=== PATIENT | female | born 1965 | race Caucasian/White ===

== ENCOUNTER 2016-06-11 08:56 | Day surgery (SDC) | payer OTHER ==
[2016-06-11] VITALS (9 sets, daily range): BP systolic 90–122; BP diastolic 40–64; PULSE 75–94; RESP 11–16; O2SAT 94–99
[~2016-06-11] VITALS: Ht 167.6 cm; Wt 76.7 kg
[~2016-06-11 08:56] MED LIST: ACET-171 PO; CeFAZolin Inj 2 GM in IV Premix 1 EACH IV ONE; DIPH25CA6 PO; EPIN0.3P2 IJ; GABA-502 PO; IBUP200C PO; LORA1TAB PO; ONDA8TAB7 PO; POLY35GE VG; PROC-4 PO; SULF1TAB35 PO
[2016-06-11] MEDS ORDERED: fentaNYL-PF 50 mCg/mL 2 mL Inj ONE (08:57)
[2016-06-11] MEDS ORDERED: Succinylcholine Chloride 20 mg/mL 5 mL Inj ONE (08:57)
[2016-06-11] MEDS ORDERED: MetoCLOpramide 5 mg/mL 2 mL Inj ONE (08:57)
[2016-06-11] MEDS ORDERED: Ketamine 10 mg/mL 20 mL Inj ONE (08:57)
[2016-06-11] MEDS ORDERED: Ondansetron 2 mg/mL 2 mL Inj ONE (08:57)
[2016-06-11] MEDS ORDERED: Dexamethasone 4 mg/mL Inj ONE (08:57)
[2016-06-11] MEDS ORDERED: Propofol 10,000 mCg/mL 20 mL Inj ONE (08:57)
[2016-06-11] MEDS: Lactated Ringer's 1,000 ML IV SCH ×2 (08:58→09:53)
[2016-06-11] MEDS ORDERED: Lactated Ringer's 500 ML IV PRN (10:22)
[2016-06-11] MEDS ORDERED: Lactated Ringer's 1,000 ML IV SCH (10:22)
[2016-06-11] MEDS ORDERED: Bupivacaine-MPF 0.5% W/EPI 30 mL Inj INFILTRATE ONE (10:22)
--- NOTE | 2016-06-11 10:22 | PCM.HPANE ---
Patient Data Surgeon Admitting Provider: Attending Provider:Martin Banks MD Primary Care Physician:Rubi Hernandez MD Other Provider:Ivania Churchillingham Anesthesia Reason for Visit Right Breast Cancer Ht/WT & BMI Height (Feet): 5 Height (Inches): 6.75 Weight (Kilograms): 77.11 Body Mass Index 26.00 Allergies Coded Allergies: amoxicillin (Verified Allergy, Severe, Rash-head to toe, 12/07/15) codeine (Verified Allergy, Severe, hallucinate, 12/12/15) citalopram (Verified Allergy, Unknown, unknown (classified as 'mild'), ) naproxen (Verified Allergy, Unknown, unknown (classified as 'mild'), ) sulfamethoxazole (Verified Allergy, Unknown, unknown (classified as 'mild' ), 12/07/15) trimethoprim (Verified Allergy, Unknown, unknown (classified as 'mild'), ) Uncoded Allergies: BEES (Allergy, Severe, LARGE LOCAL REACTIONS, 12/07/15) Past Anesthesia History Anesthesia History: Denies:: Anesthesia Reactions, Fam Anesthesia Reaction, Malignant Hyperthermia Diabetes History Hx Diabetes?: No MRSA MRSA: No Medications Reported Medications diphenhydrAMINE HCl (Benadryl)25 Mg Uejdyzt20 Mg PO HS PRN Ref 0 05/17/16 Glycerin/Min Oil/Polycarbophil (Replens Vaginal Applicator)35 Gm Gel.w.appl35 Gm VG DIRECTED PRN vaginal skin rash 04/26/16 Gabapentin 300 Mg [id number] Mg PO HS Ref 0 02/02/16 Acetaminophen 500 Mg Tablet1,000 Mg PO Q6H PRN For Pain 01/05/16 Lorazepam 1 Mg Tablet1 Mg PO HS PRN For Insomnia Ref 0 12/29/15 Prochlorperazine Maleate (Compazine)10 Mg Ndecqi65 Mg PO q8hrs prn 12/29/15 Ondansetron ODT (Zofran ODT)8 Mg Tablet8 Mg PO q8hrs prn PRN For Nausea 12/29/15 Ibuprofen 200 Mg Dnmfsep209-720 Mg PO prn PRN For Pain Ref 0 12/15/15 Epinephrine (Epipen 2-Kermit)0.3 Mg/0.3 Ml Auto.injct0.3 Mg IJ DIRECTED PRN prn 12/07/15 Discontinued Reported Medications Sulfamethoxazole/Trimeth 800-160 mg (Bactrim DS 800-160 mg)1 Each Tablet1 Tablet PO prn Ref 0 01/19/16 History History of ENT Problems?: No HEENT History: Denies:: Sinus Problem Hx of Heart Problems?: No Cardiovascular History: Positive for:: Heart Murmur (ECHO 10/2015 EF 60-65%) Denies:: Chest Pain Hypertension Pacemaker Rheumatic Fever Thrombophlebitis Valvular Heart Disease (echo 10/2015- ef 60-65%) Hx of Respiratory Problem?: No Respiratory History: Denies:: Asthma COPD Dyspnea Emphysema Hemoptysis Oxygen Administration Pneumonia Tuberculosis Use of C-PAP Machine Hx Neurologic Problems?: No Neurological History: Denies:: Alzheimer's Disease CVA Dementia Dizziness Headaches Multiple Sclerosis Parkinson's Disease Seizures Hx of GI Problems?: No Gastrointestinal History: Denies:: Cirrhosis Diverticulitis Gastroesphageal Reflux Gastrointestinal Bleeding Heartburn Hepatitis Liver Disease Rectal Bleeding Hx of Problems?: Yes Genitourinary History: Positive for:: Kidney Stones (past hx ureteral stone) Urinary Tract Infection (HX OF) Denies:: HX of Hemodialysis Female Hx: Positive for:: Problems with Breasts? (right breast current admission problem, hx ca/ port placement) Denies:: Currently Endometriosis Pelvic Inflammatory Skin History: Denies:: History Skin Disorders? (hx eczema) Pressure Ulcers Hx Musculoskeletal Problems?: No Musculoskeletal History: Denies:: Back Injury Fibromyalgia Joint Replacement Musculoskeletal Trauma Osteoarthritis Hx of Psycho/Social Problems?: No Psycho Social History: Denies:: Anxiety Bipolar Disorder Hx Depression Hx Surgeries?: Yes (tonsil, ovarian cyst, dental, Sent node bx, port) Hx Any Other Health Problems?: Yes Other History: Positive for:: Cancer (right breast, non melanoma skin ca) Hospitalization Denies:: Endocrine Disease Thyroid Disease History Blood Transfusions: Denies:: Blood Transfusions Hx Diabetes: No Hx Alcohol Use: YesAlcoholic Drinks Per Day: 1-2 dailyHx Substance Use: No Smoking Status: Former Smoker Have You Smoked inLast 12 mo: No Stop/Bang S-Snoring: Do You Snore Loudly: No T-Tired: feel tired, fatigued: No O-Obsered: Observed not breath: No P-Blood Pressure: treated: No B- Body Mass Index > 35 kg/m2: No A- Age over 50: Yes N- Neck Large Circumference: No G- Gender Male: No ADELINA Total Score: 1 Risk Assessment Category Category 1A: Patient has history of documented sleep apnea, and HAS NOT received any narcotic, sedative or anesthesia administration during this stay. Category 1B: Patient has history of documented sleep apnea, and HAS received any narcotic , sedative or anesthesia administration during this stay Category 2: Patient has SUSPECTED Obstructive Sleep Apnea, and HAS received any narcotic , sedative or anesthesia administration during this stay. Category 3: Patient has SUSPECTED Obstructive Sleep Apnea and HAS NOT received narcotic, sedative or anesthesia administration during this stay. Category 4: Outpatient in Procedural Areas with known sleep apnea or who screen positive for High Risk via the STOP/BANG questionnaire. Exam Exam General Appearance: Alert, Oriented X3, Cooperative, No Acute Distress HEENT/AIRWAY: MP 2, Neck Movement (FROM), Mouth Opening (3 FBMO) Lungs: Clear to Auscultation, Normal Air Movement Heart: Exam Unremarkable, Regular Rate/Rhythm, No Murmurs/Rubs/Gallops Plan Impression Patient chart reviewed, patient interviewed and anesthestic plan with risks, benefits, and alternatives discussed, and informed consent obtained. NPO Status: MN ASA Physical Status: ASA2 Mod Systemic Disease Anesthetic Plan: GA Bene/Risks/Altern/Consents: Yes HP Complete Prior to Induction: Yes Guilherme Mendez MD Jun 11, 2016 08:01
[2016-06-11] MEDS ORDERED: MetoCLOpramide 5 mg/mL 2 mL Inj IVPUSH PRN (10:25)
[2016-06-11] MEDS ORDERED: EPHEDrine Sulfate 50 mg/mL Inj IVPUSH PRN (10:25)
[2016-06-11] MEDS ORDERED: fentaNYL-PF 50 mCg/mL 2 mL Inj IVPUSH PRN (10:25)
[2016-06-11] MEDS ORDERED: Labetalol 5 mg/mL 4 mL Inj IV PRN (10:25)
[2016-06-11] MEDS ORDERED: Atropine 0.4 mg/mL Inj IVPUSH PRN (10:25)
[2016-06-11] MEDS ORDERED: Phenylephrine 10,000 mCg/mL Inj IVPUSH PRN (10:25)
[2016-06-11] MEDS ORDERED: HYDROmorphone 1 mg/mL Inj IVPUSH PRN (10:25)
[2016-06-11] MEDS ORDERED: hydrALAZINE 20 mg/mL Inj IVPUSH PRN (10:25)
[2016-06-11] MEDS ORDERED: Ondansetron 2 mg/mL 2 mL Inj IVPUSH PRN (10:25)
--- NOTE | 2016-06-11 11:34 | PCM.DISURG ---
Surgical Discharge Instruction Date of Service Jun 11, 2016 Dates of Hospitalization Date of Hospital Admission Providers Admitting Physician: Primary Care Physician: Rubi Hernandez MD Attending Physician: Martin Banks MD Discharge Diagnosis Discharge Diagnosis Right breast cancer Diet Discharge Diet: No restrictions Activity Discharge Activity-General: No restrictions Dressing and Incisional Care Dressing Care: Allow Steri Stripes to fall off, Remove outer dressing after 24 hrs Hygiene: May shower after (24 hours) Follow Up Plan Follow Up Plan With Dr. Banks in surgery clinic in 10-14 days Call your provider for: Fever (over 101.5), Discharge @ incision, pus discharge Martin Banks MD Jun 11, 2016 11:34
[2016-06-11] MEDS ORDERED: HYDROcodone-APAP 5-325 mg Tablet PO PRN (11:35)
--- NOTE | 2016-06-11 11:43 | PCM.SURGOP ---
Surgical Operative Report Date of Service: Jun 11, 2016 Pre Operative Diagnosis Right breast cancer Post Operative Diagnosis Same Procedure: Wire localized right partial mastectomy Surgeon and Consulting Psychologist: Surgeon: Martin Banks MD Assistants: Yannick Real PA-C Indication for Procedure 51-year-old woman who was diagnosed with T1, N1 right breast invasive ductal carcinoma in September 2015. She underwent sentinel lymph node biopsy at the outset of her treatment. She was then treated with neoadjuvant chemotherapy, which she completed on May 17. Repeat breast MRI demonstrated a complete radiographic response. The previously seen enhancing mass in the 12 o'clock position was no longer seen, and the previously seen enhancement extending toward the nipple in the 12 o'clock position was no longer seen. After discussion of risks and benefits, she agreed to proceed with wire localized right partial mastectomy. Findings: The spiral clip, which was the intended target, was not ever identified on specimen mammogram. The other clip, which was adjacent 1 cm away and corresponded to the MRI guided biopsy lesion, was localized in the first specimen. The wire fell out prematurely, immediately after skin incision. Procedure Details Preoperatively, the patient underwent wire localization in the Breast [facility]. She was then brought to the operating room where she underwent smooth induction of general endotracheal anesthesia. She was placed in the supine position with both arms out, and was prepped and draped in wide sterile fashion. A procedural pause was performed according to the SCOAP checklist, and all were found to be in agreement. A transverse incision was made in the 12 o'clock position of the right breast, just medial to the entrance of the wire. Skin flaps were raised superiorly and inferiorly. The wire was delivered into the wound. Lateral dissection was performed first, lateral and posterior aspect of the wire, and immediately as this dissection was taking place, the wire was no longer incorporated into the breast tissue. It seemed that the wire had been pulled back prematurely, as it was measured at a depth of 5 cm on the localizing mammogram, and the tip of the wire was immediately beneath the skin one skin incision was made. The wire was placed on the back table. Circumferential dissection was carried out with electrocautery around some firm breast tissue. The tissue was oriented with suture. The posterior margin of dissection was to the pectoralis fascia. The first specimen was labeled as right breast tissue, upper outer quadrant. A specimen x-ray confirmed that the second clip, the one that had localized the MRI guided biopsy, but not the one localized today with the wire was present within the specimen. The tissue was sent for permanent pathology. Separate shave margins were then obtained from all aspects of the partial mastectomy cavity using electrocautery. A superior margin was sent first, oriented, and a specimen x-ray was obtained. There was no clip. An anterior inferior margin was obtained next, x-rayed, and again there was no clip. A medial margin was obtained next, x-rayed, and again no clip. A lateral margin was obtained next, x-rayed, and again no clip. Finally, pectoralis fascia was resected, x-rayed along with the previously displaced wire, and again no clip. It did not seem appropriate to take any more specimens. All specimens were labeled, and sent for permanent pathology. The cavity was marked with hemoclips circumferentially. The breast parenchyma was closed with interrupted 3-0 Vicryl sutures. The skin incision was closed with a 4-0 Vicryl subcuticular stitch. Steri-Strips and sterile dressings were applied. At the end of the case all needle and sponge counts were correct 2. The patient was awakened from anesthesia without difficulty, and taken to the recovery room in satisfactory condition, having tolerated the procedure well. Complications There were no periprocedural complications identified. Surgical Specimen Removed: Yes Specimen sent to Pathology: Yes Surgical Specimen description: Right breast tissue, upper outer quadrant. Superior margin. Anterior inferior margin. Medial margin. Lateral margin. Posterior margin. Anesthetic Plan: GA Grafts, Implants: None Output, Estimated Blood Loss: 10 Blood Administration during kay: No Drains: None Catheters: None copies to: Rubi Hernandez MD; Errol Iqbal MD, Joshua D MD Jun 11, 2016 11:43
[2016-06-11] MEDS ORDERED: Lactated Ringer's 1,000 ML IV ONE (11:57)
--- NOTE | 2016-06-11 13:04 | PCM.ANEP2 ---
Post Anesthesia Evaluation ASA/CMS Post Anesthesia VS in Patient's Normal Range?: Yes Resp Stable; Airway Patent?: Yes CV Function & Hydration Stable: Yes Mental Status Recovered?: Yes Pain control Satisfactory?: Yes N/V Control Satisfactory?: Yes Guilherme Mendez MD Jun 11, 2016 13:04
--- NOTE | 2016-06-11 13:04 | PCM.ANEP1 ---
Post Anesthesia Phase 1 PACU Phase 1 Assessment Date of Service: Jun 11, 2016 Vital Signs Vital Signs Date Time Temp Pulse Resp B/P Pulse Ox O2 Delivery O2 Flow Rate FiO2 06/11/16 12:00 36.3 91 14 105/57 97 Room Air 06/11/16 11:55 94 13 101/58 95 Room Air 06/11/16 11:50 36.3 94 13 97/54 94 Room Air 06/11/16 11:45 94 11 103/56 94 Room Air 06/11/16 11:40 87 12 90/40 95 Room Air 06/11/16 11:35 86 15 92/50 97 Room Air 06/11/16 11:34 36.2 86 14 104/49 98 Simple Mask 10 06/11/16 09:20 35.5 75 16 122/64 98 Room Air Anesthetic Administered: GA Level of Alertness: Awake, talking KAPLAN's with Equal Strength: Yes Pain: No Nausea or Vomiting: No Oxygen Delivery: Simple Mask Lungs: Clear to Auscultation, Normal Air Movement Dermatome Level: Full Sensation Guilherme Mendez MD Jun 11, 2016 13:04
--- NOTE | 2016-06-11 13:27 | DRSVH ---
PROCEDURE: X-RAY BREAST SPECIMEN ([id number]) INDICATIONS: 51 year-old female with history of breast cancer. TECHNIQUE: Intraoperative films of the breast surgical specimen acquired. COMPARISON: [facility], MG, WIRE LOC INITIAL W/MAMMO GUIDANCE RT, 06/11/2016, 8:31. FINDINGS: Tip of the localizing wire is demonstrated separate from the specimen. The targeted coil marker clip is not visualized on 6 images obtained. A 2nd marker clip is demonstrated within the spe cimen. IMPRESSION: 1. Intraoperative specimen images obtained as described. The targeted coil clip is not identified o n the specimen images obtained. Dictated by: Devante Skelton M.D. on 06/11/2016 at 13:18 Approved by: Devante Skelton M.D. on 06/11/2016 at 13:21
--- NOTE | 2016-06-13 15:28 | PATH ---
SURGICAL PATHOLOGY Attending Physician:Marcel Bolden CASE STATUS: Signed Out PATIENT NAME: ROSA BUSH PID: [id number] : 1965 DATE COLLECTED:06/11/2016 22:22 SPECIMEN: 1: Breast, Simple Mastectomy (w/o lymph nodes) 2: Breast Margin 3: Breast Margin 4: Breast Margin 5: Breast Margin 6: Breast Margin CLINICAL HISTORY: RIGHT BREAST CANCER 1). RIGHT BREAST TISSUE UPPER OUTER QUADRANT (SHORT: SUPERIOR, LONG: LATERAL, OUT AT 10:31, FIXATIVE AT 11:10) 2). SUPERIOR MARGIN (SHORT: ANTERIOR, LONG: LATERAL, OUT AT 10:45, FIXATIVE: 11:10) 3). ANTERIOR INFERIOR MARGIN (SHORT: ANTERIOR, LONG: LATERAL, OUT AT 10:51, FIXATIVE AT 11:10) 4).MEDIAL MARGIN (SHORT: SUPERIOR, LONG: POSTERIOR, OUT AT 10:58, FIXATIVE AT 11:10) 5). LATERAL MARGIN (SHORT: SUPERIOR, LONG: LATERAL, OUT AT 11:03, FIXATIVE AT 11:10) 6). POSTERIOR MARGIN (SHORT: SUPERIOR, LONG: LATERAL, OUT AT 11:09, FIXATIVE AT 11:12) FINAL DIAGNOSIS: 1.RIGHT BREAST, UPPER OUTER QUADRANT, EXCISION: NO EVIDENCE OF RESIDUAL INVASIVE CARCINOMA OR DUCTAL CARCINOMA IN SITU. BIOPSY SITE CHANGES ARE PRESENT. MICROCALCIFICATIONS PRESENT IN ASSOCIATION WITH NON-NEOPLASTIC TISSUE. SEE COMMENT. 2. 6.RIGHT BREAST, SUPERIOR MARGIN, ANTERIOR INFERIOR MARGIN, MEDIAL MARGIN, LATERAL MARGIN, POSTERIOR MARGIN, EXCISIONS: BENIGN BREAST TISSUE WITH NO EVIDENCE OF ATYPICAL HYPERPLASIA, IN SITU OR INVASIVE CARCINOMA. ICD10 CODE Z85.3 NOTE: No residual invasive carcinoma or ductal carcinoma in situ is identified following presurgical/neoadjuvant therapy. The minimum pathologic stage is ypT0 ypNX (AJCC 7th ed. 2010). GROSS DESCRIPTION: The specimens are received in formalin, labeled with the patient's name, and sublabeled as the following: (1) right breast tissue, upper outer quadrant, short: superior, long: lateral; (2) superior margin, short: anterior, long: lateral; (3) anterior inferior margin, short: anterior, long: lateral; (4) medial margin, short: superior, long: posterior; (5) lateral margin, short: superior, long: posterior; (6) posterior margin, short: superior, long: lateral. (1) The specimen consists of a piece of breast tissue (3.2 cm in AP, 2.5 cm SI, 4.3 cm ML) with no overlying skin. The specimen is oriented with 2 black sutures (short-superior, long-lateral). No localization wire is present. The specimen is serially sectioned ML into 15 slices with a medial and lateral resection margins as slices #1 and #15 respectively. The breast tissue is densely fibrous and contains a christensen-white solid firm irregular gritty area (0.9 x 0.8 x 0.6 cm) within slices #8-#10. This area is 2.0 cm from the anterior, 0.5 cm from the posterior, 0.8 cm from the superior, 1.3 cm from the inferior, 1.9 cm from the medial, and 1.6 cm from the lateral resection margins. A black colored metal biopsy marker is identified in slice #10 adjacent to the mass. No other nodules, masses or lesions are identified. Ink code: purple-anterior; yellow-posterior; black-superior; orange-inferior; green-medial; blue-lateral. Section code: (1A) medial resection margin, perpendicularly sectioned, patient representative; (1B) slice #7, tissue adjacent to mass, entirely submitted; (1C) slice #8, entirely submitted; (1D) slice #9, entirely submitted; (1E) slice #10, entirely submitted; (1F) slice #11, tissue adjacent to mass, entirely submitted; (1G) slice #12, entirely submitted; (1H) lateral resection margin, perpendicularly sectioned, patient representative. (2) The specimen consists of a piece of breast tissue (2.6 cm AP, 0.9 cm SI, 4.3 cm ML) with no overlying skin. The specimen is oriented with 2 black sutures (short-anterior, long-lateral). No localization wire is present. The breast tissue is fatty with no nodules, masses or lesions identified. Ink code: purple-anterior; yellow-posterior; black-superior; orange-inferior; green-medial; blue-lateral. Section code: (2A-2F) breast tissue, serially sectioned and submitted LM. Specimen entirely submitted. (3) The specimen consists of a piece of breast tissue (4.7 cm AP, 1.1 cm SI, 4.7 cm ML) with no overlying skin. The specimen is oriented with 2 black sutures (short-anterior, long-lateral). No localization wire is present. The breast tissue is fibrous with no nodules or masses or lesions identified. Ink code: purple-anterior; yellow-posterior; black-superior; orange-inferior; green-medial; blue-lateral. Section code: (3A-3T) breast tissue, serially sectioned and submitted ML. Specimen entirely submitted. (4) The specimen consists of a piece of breast tissue (2.5 cm AP, 3.0 cm SI, 1.2 cm ML) with no overlying skin. The specimen is oriented with 2 black sutures (short-superior, long-posterior). No localization wire is present. The breast tissue is fatty with no nodules, masses or lesions identified. Ink code: purple-anterior; yellow-posterior; black-superior; orange-inferior; green-medial; blue-lateral. Section code: (4A-4F) breast tissue, saline sectioned and submitted SI. Specimen entirely submitted. (5) The specimen consists of a piece of breast tissue (3.2 cm AP, 3.5 cm SI, 1.4 cm ML) with no overlying skin. The specimen is oriented with 2 black sutures (short-superior, long-lateral). No localization wire is present. The breast tissue is fatty and focally densely fibrous. No nodules or masses or lesions are identified. Ink code: purple-anterior; yellow-posterior; black-superior; orange-inferior; green-medial; blue-lateral. Section code: (5A-5J) breast tissue, serially sectioned and submitted SI. Specimen entirely submitted. (6) The specimen consists of a piece of breast tissue (0.2 cm AP, 1.5 cm SI, 2.3 cm ML) with no overlying skin. The specimen is oriented with 2 black sutures (short-superior, long-lateral). No localization wire is present. The breast tissue is fatty with no nodules, masses or lesions identified. Ink code: purple-anterior; yellow-posterior; black-superior; orange-inferior; green-medial; blue-lateral. Section code: (6A) breast tissue, serially sectioned ML. Specimen entirely submitted. Note: Approximate fixation time in formalin for all specimens-32 hours and 45 minutes calculated using a collection date of June 11, 2016 with times in fixative of [id number]. 3/22/17 MICRO DESCRIPTION: See diagnosis. ICD-9 CODES: CPT CODES: 1: 01351 2: 91658 3: 25732 4: 64975 5: 32114 6: 00648 Electronically Signed Out Bernice Esparza MD [facility] Pathology [facility] [address], [place] [address] Technical component performed at [facility], [address], [place], [address]
== END 2016-06-11 23:59 | disposition home or self-care (01) ==
LOC: SAS 08:56
PROVIDERS: ATTEND Student in an Organized Health Care Education/Training Program
DX: C50.411 Malignant neoplasm of upper-outer quadrant of right female breast (principal); Z79.899 Other long term (current) drug therapy; Z87.891 Personal history of nicotine dependence
CPT/HCPCS: 19301; 76098; J0690; J7120